=== PATIENT | female | born 1955 | race Caucasian/White ===

== ENCOUNTER 2017-09-10 12:12 | Inpatient (IN) | payer BC ==
[~2017-09-10] VITALS: Ht 170.2 cm; Wt 126.3 kg
[2017-09-10] VITALS (7 sets, daily range): BP systolic 90–117; BP diastolic 35–53
[2017-09-10 12:57] LABS: HEMATOCRIT 45.4 % (37.0-47.0); HEMOGLOBIN 15.9 g/dl (12.0-16.0); IMMATURE GRANULOCYTES 0.8 % (0.0-5.0); MEAN CELL VOLUME 81.2 fL CALC (80.0-100.0); MEAN CORPUSCULAR HGB 28.4 pG CALC (26.0-32.0); NEUT# 21.68 thou/uL (2.00-7.15); RED BLOOD COUNT 5.59 mill/uL (4.20-5.60); RED CELL DISTRI WIDTH 15.2 % (11.5-15.5)
[2017-09-10] MEDS ORDERED: SYMBICORT1 AE1 IN (13:52)
[2017-09-10] MEDS ORDERED: PROAIR HFA108 MCG/AC IN (13:54)
[2017-09-10] MEDS ORDERED: EFFEXOR37.5 MG PO (13:55)
[2017-09-10] MEDS ORDERED: DETROL LA4 MG PO (13:56)
[2017-09-10] MEDS ORDERED: NATURAL THYROID (13:57)
[2017-09-10 14:25] LABS: ANION GAP 17 (6-22 (CALC)); BILIRUBIN, TOTAL 1.1 mg/dL (0.0-1.4); BUN 12 mg/dL (8-23); BUN/CREATININE RATIO 13 (12-20 (CALC)); CARBON DIOXIDE 23 mmol/l (22-30); CHLORIDE 97 mmol/l (95-108); CREATININE 0.9 mg/dL (0.5-1.0); GFR > 60 ML/MIN (>=60 (CALC)); GFR FOR AFR.AMER. > 60 ML/MIN (>=60 (CALC)); POTASSIUM 3.6 mmol/l (3.5-5.1); SODIUM 133 mmol/l (137-146); TOTAL PROTEIN 7.6 g/dL (6.3-8.2)
[2017-09-10 14:26] LABS: ALBUMIN 4.4 g/dL (3.2-5.0); ALKALINE PHOSPHATASE 106 u/l (38-126); SGOT/AST 19 u/l (9-36); SGPT/ALT 34 u/l (11-66)
[2017-09-10 16:26] LABS: URINE BILIRUBIN - DIPSTICK NEGATIVE (NEGATIVE); URINE BLOOD DIPSTICK MODERATE (NEGATIVE); URINE GLUCOSE - DIPSTICK NEGATIVE (NEGATIVE); URINE KETONE TRACE mg/dL (NEGATIVE); URINE PROTEIN - DIPSTICK 30 mg/dL (NEG-TRACE)
[2017-09-10 16:30] LABS: BARBITURATES NEGATIVE (NEGATIVE); COCAINE NEGATIVE (NEGATIVE); METHADONE NEGATIVE (NEGATIVE); OXCYCODONE NEGATIVE (NEGATIVE); TETRAHYDROCANNABIONOL NEGATIVE (NEGATIVE); TRICYLIC ANTIDEPRESSANTS NEGATIVE (NEGATIVE)
[2017-09-10 16:31] LABS: URINE CLARITY HAZY; URINE COLOR AMBER; URINE LEUK ESTERASE MODERATE (NEGATIVE); URINE NITRITE - DIPSTICK POSITIVE (Negative)
[2017-09-10 16:39] LABS: URINE BACTERIA FEW hpf; URINE SQUAMOUS EPITHELIAL CELL FEW EPI/hpf (0-FEW); URINE WBC 20-50 WBC/hpf (0-5)
[2017-09-11 04:56] VITALS: BP 116/58
[2017-09-11 07:33] LABS: IMMATURE GRANULOCYTES 0.2 % (0.0-5.0); MEAN CELL VOLUME 80.5 fL CALC (80.0-100.0); MEAN CORPUSCULAR HGB 28.5 pG CALC (26.0-32.0); MEAN CORPUSCULAR HGB CONC 35.4 g/L CALC (32.0-36.0); NEUT# 8.47 thou/uL (2.00-7.15); RED BLOOD COUNT 4.67 mill/uL (4.20-5.60); RED CELL DISTRI WIDTH 15.3 % (11.5-15.5)
[2017-09-11 07:40] LABS: HEMATOCRIT 37.6 % (37.0-47.0); HEMOGLOBIN 13.3 g/dl (12.0-16.0)
[2017-09-11 08:25] LABS: ALKALINE PHOSPHATASE 72 u/l (38-126); ANION GAP 8 (6-22 (CALC)); BILIRUBIN, TOTAL 0.9 mg/dL (0.0-1.4); BUN 9 mg/dL (8-23); BUN/CREATININE RATIO 17 (12-20 (CALC)); CARBON DIOXIDE 26 mmol/l (22-30); CHLORIDE 104 mmol/l (95-108); CREATININE 0.5 mg/dL (0.5-1.0); GFR > 60 ML/MIN (>=60 (CALC)); GFR FOR AFR.AMER. > 60 ML/MIN (>=60 (CALC)); MAGNESIUM 1.4 mg/dL (1.6-2.3); POTASSIUM 3.4 mmol/l (3.5-5.1); SGOT/AST 15 u/l (9-36); SGPT/ALT 28 u/l (11-66); SODIUM 134 mmol/l (137-146)
[2017-09-11 08:27] VITALS: BP 96/40
[2017-09-11 08:27] LABS: ALBUMIN 2.5 g/dL (3.2-5.0); TOTAL PROTEIN 4.7 g/dL (6.3-8.2)
[2017-09-11 11:20] VITALS: BP 131/58
[2017-09-11 16:50] VITALS: BP 118/62
[2017-09-11 19:44] VITALS: BP 109/56
[2017-09-11 23:38] VITALS: BP 122/63
[2017-09-12 04:31] VITALS: BP 105/61
[2017-09-12 05:15] LABS: HEMATOCRIT 35.4 % (37.0-47.0); HEMOGLOBIN 12.3 g/dl (12.0-16.0); IMMATURE GRANULOCYTES 0.4 % (0.0-5.0); MEAN CELL VOLUME 82.5 fL CALC (80.0-100.0); MEAN CORPUSCULAR HGB 28.7 pG CALC (26.0-32.0); MEAN CORPUSCULAR HGB CONC 34.7 g/L CALC (32.0-36.0); NEUT# 7.97 thou/uL (2.00-7.15); RED BLOOD COUNT 4.29 mill/uL (4.20-5.60); RED CELL DISTRI WIDTH 15.6 % (11.5-15.5)
[2017-09-12 05:37] LABS: ANION GAP 12 (6-22 (CALC)); BUN 11 mg/dL (8-23); BUN/CREATININE RATIO 20 (12-20 (CALC)); CARBON DIOXIDE 23 mmol/l (22-30); CHLORIDE 103 mmol/l (95-108); CREATININE 0.6 mg/dL (0.5-1.0); GFR > 60 ML/MIN (>=60 (CALC)); GFR FOR AFR.AMER. > 60 ML/MIN (>=60 (CALC)); POTASSIUM 3.7 mmol/l (3.5-5.1); SODIUM 134 mmol/l (137-146)
[2017-09-12 08:51] VITALS: BP 137/55
[2017-09-12 12:14] VITALS: BP 125/62
[2017-09-12 16:45] VITALS: BP 138/69
[2017-09-12 19:40] VITALS: BP 111/61
[2017-09-13 00:35] VITALS: BP 132/76
[2017-09-13 05:16] VITALS: BP 111/57
[2017-09-13 08:20] VITALS: BP 116/64
[2017-09-13 16:00] VITALS: BP 120/66
[2017-09-13 19:40] VITALS: BP 124/64
[2017-09-14 04:01] VITALS: BP 135/79
[2017-09-14 09:50] VITALS: BP 131/72
[2017-09-14 16:50] VITALS: BP 162/74
[2017-09-14 19:00] VITALS: BP 155/76
[2017-09-15 04:58] VITALS: BP 126/68
[2017-09-15 05:55] LABS: HEMATOCRIT 33.5 % (37.0-47.0); HEMOGLOBIN 11.8 g/dl (12.0-16.0); MEAN CELL VOLUME 80.9 fL CALC (80.0-100.0); MEAN CORPUSCULAR HGB 28.5 pG CALC (26.0-32.0); MEAN CORPUSCULAR HGB CONC 35.2 g/L CALC (32.0-36.0); RED BLOOD COUNT 4.14 mill/uL (4.20-5.60); RED CELL DISTRI WIDTH 15.4 % (11.5-15.5)
[2017-09-15 06:08] LABS: ANION GAP 11 (6-22 (CALC)); BUN 6 mg/dL (8-23); BUN/CREATININE RATIO 12 (12-20 (CALC)); CARBON DIOXIDE 27 mmol/l (22-30); CHLORIDE 101 mmol/l (95-108); CREATININE 0.5 mg/dL (0.5-1.0); GFR > 60 ML/MIN (>=60 (CALC)); GFR FOR AFR.AMER. > 60 ML/MIN (>=60 (CALC)); MAGNESIUM 1.9 mg/dL (1.6-2.3); POTASSIUM 3.3 mmol/l (3.5-5.1); SODIUM 136 mmol/l (137-146)
[2017-09-15 08:15] VITALS: BP 149/65
[2017-09-15] MEDS ORDERED: CIPROFLOXACIN500 M1 PO (12:07)
[2017-09-15] MEDS ORDERED: METRONIDAZOLE500 MG PO (12:07)
[2017-09-15] MEDS ORDERED: LORTAB 5/3255 MG PO (12:07)
== END 2017-09-15 15:05 | disposition home or self-care (01) | DRG 339 ==
LOC: ED 12:12 → ED-I 16:10 → ED 16:56 → MS2 16:57 → ED-I 16:57 → MS2 18:38
PROVIDERS: Emergency Medicine; Nurse Practitioner; Nurse Practitioner Family; Surgery; ADMIT Internal Medicine; ATTEND Internal Medicine
PROC: 0DTJ4ZZ Resection of Appendix, Percutaneous Endoscopic Approach (ICD-10-PCS; principal; 2017-09-10)
PROC: 3E0234Z Introduction of Serum, Toxoid and Vaccine into Muscle, Percutaneous Approach (ICD-10-PCS; 2017-09-12)
DX: K35.2 Acute appendicitis with generalized peritonitis (principal); Z68.41 Body mass index [BMI] 40.0-44.9, adult; K56.7 Ileus, unspecified; J45.909 Unspecified asthma, uncomplicated; E03.9 Hypothyroidism, unspecified; G47.33 Obstructive sleep apnea (adult) (pediatric); E66.01 Morbid (severe) obesity due to excess calories; R50.82 Postprocedural fever; E87.6 Hypokalemia; Z98.84 Bariatric surgery status; Z23 Encounter for immunization
CPT/HCPCS: J2710; Q9967